=== PATIENT | male | born 1995 | race Two or more races ===

== ENCOUNTER 2023-09-17 00:12 | Emergency (ER) | payer SELFPAY | END 2023-09-17 00:58 | LOC: JD.ED 00:12 | DX: T69.9XXA Effect of reduced temperature, unspecified, initial encounter (principal) | CPT/HCPCS: 99282; 99284 ==

== ENCOUNTER 2025-07-28 02:00 | Emergency (ER) | payer SELFPAY ==
[2025-07-28] MEDS ORDERED: Sodium Chloride 0.9% 10 ML Syringe FLUSH PRN (02:46)
[2025-07-28 02:53] LABS: BASOPHILS ABSOLUTE AUTO 0.1 K/mm3 (0.0-0.2); BASOPHILS PERCENT AUTO 1.4 % (0.0-1.0); EOSINOPHILS ABSOLUTE AUTO 0.1 K/mm3 (0.0-0.4); EOSINOPHILS PERCENT AUTO 1.4 % (0.0-6.0); IMMATURE GRAN ABSOLUTE AUTO 0.04 K/mm3 (0.00-0.05); IMMATURE GRAN PERCENT AUTO 0.6 % (0.0-0.4); LYMPHOCYTES ABSOLUTE AUTO 2.1 K/mm3 (1.0-4.8); LYMPHOCYTES PERCENT AUTO 32.1 % (24.0-44.0); MEAN PLATELET VOLUME 10.1 fl (9.4-12.4); MONOCYTES ABSOLUTE AUTO 0.5 K/mm3 (0.0-0.8); MONOCYTES PERCENT AUTO 7.8 % (0.0-8.0); NEUTROPHILS ABSOLUTE AUTO 3.6 K/mm3 (1.8-7.7); NEUTROPHILS PERCENT AUTO 56.7 % (41.0-71.0); NRBC ABSOLUTE 0.00 (0.00-0.02); NRBC PERCENT 0.0 % (0.0-0.2); PLATELET COUNT,PLT 262 K/mm3 (150-400); RED BLOOD CELL COUNT 4.67 M/mm3 (4.52-5.90); WHITE BLOOD CELL COUNT,WBC 6.41 K/mm3 (3.9-11.3)
[2025-07-28] MEDS: Alum Hydrox/Mag Hydrox/Simeth 30 ML, Lidocaine 2% 15 ML PO ONE (03:01)
[2025-07-28] MEDS: Ketorolac 15 MG/ML SDV IVPUSH ONE (03:05)
[2025-07-28 03:07] LABS: A/G RATIO 1.1 (1-2); ALANINE AMINOTRANSFERASE,ALT 45.0 U/L (16-63); ASPARTATE AMNIOTRANSFERASE,AST 52.0 U/L (15-37); BILIRUBIN TOTAL 0.3 mg/dL (0.2-1.0); BLOOD UREA NITROGEN,BUN 13.0 mg/dL (7-18); CARBON DIOXIDE,CO2 28.0 mEq/L (21-32); CHLORIDE,CL 102.0 mEq/L (98-107); CREATININE 1.0 mg/dL (0.7-1.3); EST CRCL DRUG DOSING (CG) 116.32 mL/min; ESTIMATED GFR 106.0 mL/min (>60); GLUCOSE RANDOM 108.0 mg/dL (70-99); POTASSIUM,K 3.9 mEq/L (3.5-5.1); PROTEIN TOTAL,TP 7.2 g/dl (6.4-8.2); SODIUM,NA 140.0 mEq/L (136-145); TROPONIN I HIGH SENSITIVITY 5.0 pg/mL (<=76)
== END 2025-07-28 04:36 | disposition home or self-care (01) ==
LOC: JD.ED 02:00
DX: R07.89 Other chest pain (principal); R74.8 Abnormal levels of other serum enzymes; F17.200 Nicotine dependence, unspecified, uncomplicated; Z79.899 Other long term (current) drug therapy; Z86.16 Personal history of COVID-19
CPT/HCPCS: 36415; 71045; 80053; 83690; 84484; 85025; 96374; 99285; A9270; J1885; J3490